=== PATIENT | female | born 1995 | race Caucasian/White ===

== ENCOUNTER 2018-09-01 04:33 | Emergency (ER) | payer BC, OTHER ==
[2018-09-01 04:44] VITALS: RESP 18
--- NOTE | 2018-09-01 05:10 | ED ---
Wound/Laceration HPI - General Chief Complaint: Wound/Laceration Stated Complaint: Stepped on nail Source: patient Mode of arrival: ambulatory Limitations: no limitations - History of Present Illness Initial Comments: Since previously healthy 23-year-old female who doesn't believe she's been vaccinated since elementary school she presents the emergency department today for evaluation of painful injury to her left forefoot. She reports that yesterday during the day she was walking when she stepped on a piece of with that apparently had a nail in it. The nail penetrated into the forefoot. She had to manually pulled the piece of wood from her shoe. She then went inside and squeezed her foot to make it bleed and then washed it and applied toilet paper stop the bleeding. 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 - Related Data Previous Rx's Medication Instructions Recorded Ciprofloxacin HCl [Cipro] 750 mg PO BID #10 tablet 09/01/18 Ibuprofen [Motrin] 800 mg PO TID #30 tab 09/01/18 Allergies Allergy/AdvReac Type Severity Reaction Status Date / Time No Known Allergies Allergy Verified 09/01/18 04:44 Review of Systems ROS Statement: Those systems with pertinent positive or pertinent negative responses have been documented in the HPI. ROS Other: All systems not noted in ROS Statement are negative. Past Medical History Past Medical History: No Reported History History of Any Multi-Drug Resistant Organisms: None Reported Past Surgical History: No Surgical Hx Reported Past Psychological History: No Psychological Hx Reported Smoking Status: Current every day smoker Past Alcohol Use History: Occasional Past Drug Use History: Marijuana General Exam - General Exam Comments Initial Comments: Physical Exam GENERAL: Patient is well-developed and well-nourished. Patient is nontoxic and well-hydrated and is in no distress. HENT: Normocephalic, Atraumatic. EYES: PERRL, EOMI PULMONARY: Unlabored respirations. CARDIOVASCULAR: RRR ABDOMEN: Non-distended SKIN: Small puncture wound to left forefoot, some surrounding redness, appears to be bruising, no crepetence noted : Deferred NEUROLOGIC: Patient is alert and oriented x3. Moving all extremities spontaneously MUSCULOSKELETAL: Normal extremities with adequate strength and full range of motion. No lower extremity swelling or edema. No calf tenderness. PSYCHIATRIC: Normal psychiatric evaluation. Limitations: no limitations Limitations: no limitations Course Vital Signs 09/01/18 09/01/18 04:39 07:00 Temperature 98.4 F 98.0 F Pulse Rate 76 82 Respiratory 18 18 Rate Blood Pressure 106/70 133/72 O2 Sat by Pulse 99 99 Oximetry Medical Decision Making - Medical Decision Making She was seen and evaluated history is obtained from the patient and review of medical record X-rays and tetanus were ordered Patient's foot was placed in warm bath with Betadine for cleansing X-ray with no foreign body or free air wound was cleansed as thoroughly as possible The importance of good hygiene and wound care was discussed with the patient, given that she did step on the nail through the sole of her foot she will be treated with antibiotics to prevent any infection Patient was prescribed Cipro all questions pertaining care were answered return parameters were discussed and the patient was discharged home in stable condition - Lab Data Lab Results 09/01/18 Range/Units 05:36 Urine HCG, Qual Not Detected (Not Detectd) Disposition Clinical Impression: Puncture wound Disposition: HOME SELF-CARE Instructions (If sedation given, give patient instructions): Diphtheria/Tetanus Vaccine (By injection), Puncture Wound (ED) Prescriptions: Ciprofloxacin HCl [Cipro] 750 mg PO BID #10 tablet Ibuprofen [Motrin] 800 mg PO TID #30 tab Is patient prescribed a controlled substance at d/c from ED?: No Referrals: None,Stated [Primary Care Provider] - 1-2 days
--- NOTE | 2018-09-01 06:11 | XR ---
EXAM: XR Right Foot Complete, 2 Views. CLINICAL HISTORY: Reason: penetrating injury to forefoot TECHNIQUE: Frontal and lateral views of the right foot. COMPARISON: No relevant prior studies available. FINDINGS: Bones: No acute fracture. Joints: No dislocation. Soft tissues: Unremarkable. No radiopaque foreign body. IMPRESSION: Normal right foot.
[2018-09-01] MEDS ORDERED: DIPH,PERTUS(ACELL)TETVAC-LF 0.5 ML VIAL IM ONE (06:41)
[2018-09-01 07:01] VITALS: BP 133/72; PULSE 82; TEMP 98
== END 2018-09-01 07:01 | disposition home or self-care (01) ==
LOC: EC 04:33
DX: S91.331A Puncture wound without foreign body, right foot, initial encounter (principal); F17.200 Nicotine dependence, unspecified, uncomplicated; Z23 Encounter for immunization; W45.0XXA Nail entering through skin, initial encounter; Y93.01 Activity, walking, marching and hiking
CPT/HCPCS: 81025; 90471; 90715; 99283